=== PATIENT | female | born 1995 | race Caucasian/White ===

== ENCOUNTER 2024-05-02 10:17 | Emergency (ER) | payer OTHER ==
[2024-05-02 10:25] VITALS: BP 117/72; PULSE 87; RESP 18; TEMP 97.9; BMI 43.3
[2024-05-02 12:27] LABS: BASO % 0.6 % (0-2.0); EOS % 0.8 % (0-4.5); HEMATOCRIT 35.9 % (32.4-45.2); HEMOGLOBIN 12.2 GM/dL (10.7-15.3); LYMPH % 25.9 % (8-40); MCH 26.9 pg (25.7-33.7); MCHC 34.1 g/dl (32.0-36.0); MEAN CELL VOLUME 78.9 fl (80-96); MEAN PLT VOLUME 8.5 fl (7.5-11.1); MONO % 5.2 % (3.8-10.2); NEUT % 67.5 % (42.8-82.8); PLATELET COUNT 277 10^3/uL (134-434); RBC 4.55 M/mm3 (3.60-5.2); RDW 13.9 % (11.6-15.6); WHITE BLOOD COUNT 9.8 K/mm3 (4.0-10.0)
[2024-05-02 12:52] LABS: POTASSIUM 4.3 mmol/L (3.5-5.1)
[2024-05-02 12:54] LABS: CALCIUM 9.5 mg/dL (8.5-10.1)
[2024-05-02 12:55] LABS: ALBUMIN 3.3 g/dl (3.4-5.0)
[2024-05-02 12:58] LABS: CREATININE 0.5 mg/dL (0.55-1.3)
[2024-05-02 12:59] LABS: BILIRUBIN,TOTAL 0.6 mg/dL (0.2-1); TOT PROT 7.2 g/dl (6.4-8.2)
[2024-05-02 13:29] LABS: EPI CELLS 16 /uL (0-25.1); HYALINE CASTS 1 /uL (0-3.1); PH,URINE 5.5 (5.0-8.0); URINE APPEARANCE CLEAR; URINE BACTERIA 8 /uL (0-1359); URINE BILIRUBIN NEGATIVE (NEGATIVE); URINE COLOR YELLOW; URINE GLUCOSE (UA) NEGATIVE (NEGATIVE); URINE KETONE TRACE (NEGATIVE); URINE LEUK ESTERASE NEGATIVE (NEGATIVE); URINE NITRITE NEGATIVE (NEGATIVE); URINE PROTEIN NEGATIVE (NEGATIVE); URINE RBC 15 /uL (0-23.9); URINE WBC 19 /uL (0-25.8)
[2024-05-02] MEDS ORDERED: AZITHROMYCIN 500 MG TABLET ONE (15:53)
[2024-05-02] MEDS ORDERED: cefTRIAXone SODIUM 1 GM VIAL ONE (15:56)
[2024-05-02] MEDS: AZITHROMYCIN 500 MG TABLET PO ONE (16:20)
== END 2024-05-02 16:44 | disposition home or self-care (01) ==
LOC: JER 10:17
DX: O20.9 Hemorrhage in early pregnancy, unspecified (principal); O23.512 Infections of cervix in pregnancy, second trimester; Z3A.14 14 weeks gestation of pregnancy
CPT/HCPCS: 36415; 76817-TC; 80053; 81003; 84702; 85025; 86850; 86900; 86901; 87070; 87086; 87205; 87491; 87591; 87661; 99284-25